=== PATIENT | male | born 1995 | race Caucasian/White ===

== ENCOUNTER → 2019-08-07 12:30 | Outpatient (CLI) | payer OTHER, SELFPAY ==
[2019-08-07 13:24] LABS: Alanine Aminotransferase 34 IU/L (<50); Albumin 4.7 g/dL (3.5-5.0); Albumin Globulin Ratio 1.7 (1.0-2.8); Alkaline Phosphatase 70 U/L (38-126); Aspartate Aminotransferase 78 IU/L (17-59); Bilirubin Unconjugated 0.8 mg/dL (0.0-1.1); Cholesterol 197 mg/dL (140-199); Globulin 2.8 g/dL (1.7-4.1); HDL Cholesterol 46 mg/dL (40-60); HEMOLYSIS < 15 (0-50); LDL Cholesterol Calculated 131 mg/dL (<100); Total Protein 7.5 g/dL (6.3-8.2); Triglycerides 101 mg/dL (35-150)
== END ==
PROVIDERS: PCP Pediatrics; Visit Provider Dermatology
DX: Z79.899 Other long term (current) drug therapy (principal); L70.0 Acne vulgaris
CPT/HCPCS: 36415; 80061; 80076

== ENCOUNTER → 2019-10-11 11:22 | Outpatient (CLI) | payer OTHER, SELFPAY ==
[2019-10-11 13:07] LABS: Alanine Aminotransferase 29 IU/L (<50); Albumin 4.8 g/dL (3.5-5.0); Albumin Globulin Ratio 1.6 (1.0-2.8); Alkaline Phosphatase 72 U/L (38-126); Aspartate Aminotransferase 31 IU/L (17-59); Bilirubin Total 0.8 mg/dL (0.2-1.3); Bilirubin Unconjugated 0.7 mg/dL (0.0-1.1); Cholesterol 196 mg/dL (140-199); HDL Cholesterol 46 mg/dL (40-60); HEMOLYSIS < 15 (0-50); LDL Cholesterol Calculated 124 mg/dL (<100); Total Protein 7.8 g/dL (6.3-8.2); Triglycerides 129 mg/dL (35-150)
== END ==
PROVIDERS: PCP Pediatrics; Referring Provider Dermatology; Visit Provider Dermatology
DX: Z79.899 Other long term (current) drug therapy (principal); L70.0 Acne vulgaris
CPT/HCPCS: 36415; 80061; 80076

== ENCOUNTER → 2020-02-09 14:42 | Outpatient (CLI) | payer OTHER, SELFPAY ==
[2020-02-17 12:45] LABS: Hepatitis B Surf AB Quant <3.1
== END ==
PROVIDERS: PCP Internal Medicine; Referring Provider Ophthalmology; Visit Provider Ophthalmology
DX: Z01.84 Encounter for antibody response examination (principal)
CPT/HCPCS: 36415; 86706

== ENCOUNTER → 2020-08-14 10:45 | Outpatient (CLI) | payer SELFPAY ==
[2020-08-15 04:36] LABS: Hepatitis B Surf AB Quant >1000.0 mIU/mL (Immunity>9.9)
== END ==
PROVIDERS: PCP Internal Medicine; Referring Provider Ophthalmology; Visit Provider Ophthalmology
DX: Z11.59 Encounter for screening for other viral diseases (principal)
CPT/HCPCS: 36415; 86706